=== PATIENT | female | born 1965 | race American Indian/Alaskan Native ===

== ENCOUNTER 2020-03-13 12:51 | Outpatient (CLI) | payer BC ==
--- NOTE | 2020-03-13 14:28 | Ultrasound Report ---
ULTRASOUND-GUIDED NEEDLE CORE BIOPSY BREAST WITH CLIP PLACEMENT CLINICAL: A palpable right breast mass at 12:00 12 cm from the nipple. FINDINGS: The procedure was explained to the patient and informed consent was obtained. Ultrasound demonstrated the previously identified 6 mm shadowing firm palpable relatively anechoic ma ss near the skin at 12:00 12 cm from the nipple. 2. Adjacent smaller masses are also identified.. I marked the breast with a felt tip marker and a timeout was called. The skin was prepped with Chloro -Prep and anesthetized with 1% lidocaine. Needle core biopsy was performed through small dermatotomy using ultrasound guidance, 2% lidocaine wi th epinephrine for deep anesthesia and a 14-gauge Achieve biopsy device. 2 cores were obtained and pl aced in formalin. The lesion showed near complete collapse after 2 passes and a marker clip was deplo yed within the lesion. The patient tolerated the procedure well and there were no apparent complications. Hemostasis was ach ieved with minimal effort and a sterile dressing was applied. A post procedure mammogram was not performed. She left the department in good condition and was given instructions for wound care and follow-up. IMPRESSION: Uncomplicated ultrasound guided needle core biopsy with clip placement right breast. My i mpression at the time of the biopsy is that this is a benign oil cyst which demonstrated near complet e collapse after 2 needle passes. Signer Name: Joel Mercado MD Signed: 03/13/2020 2:23 PM Workstation Name: [id number]
== END 2020-03-13 12:52 | disposition home or self-care (01) ==
LOC: SPVWC 12:51
PROVIDERS: ATTEND Surgery
DX: N63.12 Unspecified lump in the right breast, upper inner quadrant (principal); N64.89 Other specified disorders of breast
CPT/HCPCS: 88305; 88312

== ENCOUNTER 2020-08-20 13:26 | Outpatient (CLI) | payer BC | END 2020-08-20 13:27 | disposition home or self-care (01) | LOC: SPVWC 13:26 | PROVIDERS: ATTEND Surgery | DX: N63.15 Unspecified lump in the right breast, overlapping quadrants (principal) ==

== ENCOUNTER 2021-03-21 08:34 | Day surgery (SDC) | payer BC, OTHER ==
[2021-03-19 15:56] LABS: Hematocrit 38.4 % (30.3-42.9); Hemoglobin 12.6 gm/dl (10.1-14.3); Mean Corpuscular HGB Conc 33 % (30-34); Mean Corpuscular Volume 79 fl (79-97); Platelet Count 462 K/mm3 (140-440); Red Blood Count 4.85 M/mm3 (3.65-5.03); Red Cell Distribution Width 16.5 % (13.2-15.2)
[2021-03-19 16:06] LABS: Blood Urea Nitrogen 8 mg/dL (7-17); Calcium 8.8 mg/dL (8.4-10.2); Hemolysis Index 11
[2021-03-19 16:15] LABS: BUN/Creatinine Ratio 16
[~2021-03-21 08:34] MED LIST: BUPIVACAINE/PF (0.5%) 5 MG/1 ML 30 ML VIAL INFILTRATI ONE; LIDOCAINE (1%) 10 MG/1 ML VIAL 20 ML MDV INFILTRATI ONE; ROCURONIUM 50 MG/5 ML INJ IV ONE; SODIUM CHLORIDE 0.9% IRR 1,500 ML BOTTLE IR ONE; SUCCINYLCHOLINE CHLORIDE 200 MG/10 ML INJ MDV ONE; ceFAZolin/STERILE WATER 2 GM/20 ML SYRINGE IV NR; fentaNYL 100 MCG/2 ML INJ ONE; propofoL 200 MG/20 ML VIAL IV ONE
[2021-03-21] MEDS ORDERED: LACTATED RINGERS 1,000 ML ONE (09:02)
[2021-03-21] MEDS ORDERED: HYDROmorphone 1 MG/1 ML INJ IV PRN ×2 (09:36)
[2021-03-21] MEDS ORDERED: MAGNESIUM OXIDE 400 MG TAB PO ONE (09:36)
[2021-03-21] MEDS ORDERED: ACETAMINOPHEN 500 MG TAB PO ONE (09:36)
[2021-03-21] MEDS ORDERED: ONDANSETRON 4 MG/2 ML INJ IV PRN (09:36)
--- NOTE | 2021-03-21 09:37 | Anesthesia Day of Surgery ---
Anesthesia Day of Surgery - Day of Surgery Patient Examined: Yes Patient H&P Reviewed: Yes Patient is NPO: Yes
--- NOTE | 2021-03-21 09:39 | Anesthesia Consultation ---
Anesthesia Consult and Med Hx Date of service: 03/21/21 - Airway Anesthetic Teeth Evaluation: Chipped (Missing) ROM Head & Neck: Adequate Mental/Hyoid Distance: Adequate Mallampati Class: Class II Intubation Access Assessment: Good - Pre-Operative Health Status ASA Pre-Surgery Classification: ASA2 Proposed Anesthetic Plan: General - Pulmonary Hx Respiratory Symptoms: No (+2FS) Hx Pneumonia: (IN 2011) - Cardiovascular System Hx Hypertension: Yes - Central Nervous System Hx Back Pain: Yes (Hx scoliosis as a child) Hx Psychiatric Problems: Yes (Anxiety/Depression) - Gastrointestinal Hx Ulcer: Yes (in the past) Hx Gastroesophageal Reflux Disease: No - Endocrine Hx Non-Insulin Dependent Diabetes: Yes (Diet-controlled) - Hematic Hx Anemia: Yes (TREATED WITH IRON INFUSION) - Other Systems Hx Alcohol Use: No Hx Substance Use: No Hx Cancer: No Hx Obesity: Yes
[2021-03-21] MEDS ORDERED: LACTATED RINGERS 1,000 ML IV SCH (09:45)
[2021-03-21] MEDS ORDERED: MIDAZOLAM 2 MG/2 ML INJ IV NR (10:00)
[2021-03-21] MEDS ORDERED: CELECOXIB 200 MG CAP PO NR (10:00)
[2021-03-21] MEDS ORDERED: GABAPENTIN 300 MG CAP PO NR (10:00)
[2021-03-21] MEDS ORDERED: dexAMETHasone 20 MG/5 ML VIAL ONE (10:02)
[2021-03-21] MEDS ORDERED: fentaNYL 100 MCG/2 ML INJ ONE (10:02)
[2021-03-21] MEDS ORDERED: propofoL 200 MG/20 ML VIAL IV ONE (10:02)
[2021-03-21] MEDS ORDERED: ROCURONIUM 50 MG/5 ML INJ IV ONE ×2 (10:04→11:11)
[2021-03-21] MEDS ORDERED: BUPIVACAINE/PF (0.5%) 5 MG/1 ML 30 ML VIAL INFILTRATI ONE ×2 (10:07→11:10)
[2021-03-21] MEDS ORDERED: LIDOCAINE (1%) 10 MG/1 ML VIAL 20 ML MDV ONE (10:07)
[2021-03-21] MEDS ORDERED: SODIUM CHLORIDE 0.9% IRR 1,500 ML BOTTLE IR ONE (11:10)
[2021-03-21] MEDS ORDERED: LIDOCAINE (1%) 10 MG/1 ML VIAL 20 ML MDV INFILTRATI ONE (11:10)
[2021-03-21] MEDS ORDERED: PHENYLEPHRINE/NS 1,000 MCG/10 ML SYRINGE (OR USE) IV ONE (11:12)
[2021-03-21] MEDS ORDERED: SUCCINYLCHOLINE CHLORIDE 200 MG/10 ML INJ MDV ONE (11:24)
[2021-03-21] MEDS ORDERED: KETOROLAC 30 MG/1 ML INJ ONE (11:24)
[2021-03-21] MEDS ORDERED: ONDANSETRON 4 MG/2 ML INJ ONE (11:24)
[2021-03-21] MEDS ORDERED: ALBUTEROL 8.5 GM MDI INHALATION IH ONE (11:24)
[2021-03-21] MEDS ORDERED: ePHEDrine SULFATE 50 MG/1 ML INJ ONE (11:37)
[2021-03-21] MEDS ORDERED: NEOSTIGMINE 10MG/10 ML INJ MDV ONE (12:17)
[2021-03-21] MEDS ORDERED: GLYCOPYRROLATE 0.4 MG/2 ML INJ ONE (12:17)
[2021-03-21] MEDS ORDERED: SUGAMMADEX SODIUM 200 MG/2 ML VIAL IV ONE (12:28)
--- NOTE | 2021-03-21 12:30 | Short Stay Summary ---
Short Stay Documentation Date of service: 03/21/21 - History Principal diagnosis: symptomatic cholethiasis H&P: obtained from office - Allergies and Medications Current Medications: Allergies No Known Allergies Allergy (Unverified 03/17/21 16:05) Home Medications Medication Instructions Recorded Confirmed Last Taken Type Amlodipine Besylate/Valsartan 1 each PO DAILY 03/17/21 03/21/21 03/21/21 07:00 History [Amlodipine-Valsartan 10-320 mg] Escitalopram Oxalate [Lexapro] 20 mg PO DAILY 03/17/21 03/21/21 03/21/21 07:00 History Ibuprofen [Motrin] 800 mg PO Q8HR PRN 03/17/21 03/21/21 03/16/21 09:00 History atenoloL [Tenormin] 25 mg PO DAILY 03/17/21 03/21/21 03/21/21 07:00 History HYDROcodone/APAP 5-325 [[place] 1 each PO Q4HR PRN #20 tablet 03/21/21 Unknown Rx 5/325] Active Medications Cefazolin Sodium (Cefazolin/Sterile Water 2 Gm/20 Ml Syringe) 2 gm IV PREOP NR Stop: 03/21/21 20:00 Celecoxib (Celecoxib 200 Mg Cap) 400 mg PO PREOP NR Stop: 03/21/21 19:00 Last Admin: 03/21/21 09:52 Dose: 400 mg Documented by: Gabapentin (Gabapentin 300 Mg Cap) 300 mg PO PREOP NR Stop: 03/21/21 19:00 Last Admin: 03/21/21 09:53 Dose: 300 mg Documented by: Hydromorphone HCl (Hydromorphone 1 Mg/1 Ml Inj) 0.25 mg IV Q10MIN PRN PRN Reason: Pain, Moderate (4-6) Hydromorphone HCl (Hydromorphone 1 Mg/1 Ml Inj) 0.5 mg IV Q10MIN PRN PRN Reason: Pain , Severe (7-10) Lactated Ringer's (Lactated Ringers) 1,000 mls @ 125 mls/hr IV DIRECT HOMAR Last Admin: 03/21/21 09:30 Dose: 125 mls/hr Documented by: Midazolam HCl (Midazolam 2 Mg/2 Ml Inj) 2 mg IV PREOP NR Stop: 03/21/21 23:59 Ondansetron HCl (Ondansetron 4 Mg/2 Ml Inj) 4 mg IV ONCE PRN PRN Reason: Nausea And Vomiting - Brief post op/procedure progress note Date of procedure: 03/21/21 Pre-op diagnosis: symptomatic cholelithiasis Post-op diagnosis: other (chronic cholecystitis) Procedure: laparoscopic cholecystectomy Anesthesia: GETA, local Findings: Chronic gallbladder wall thickening, contracted gallbladder with large stone in body Dense adhesions from gallbladder to transverse colon and omentum Surgeon: NILSON BOONE Estimated blood loss: minimal Pathology: list (gallbladder) Specimen disposition: to lab Condition: stable - Hospital course Hospital course: Pt observed in PACU and discharged to home in stable condition when criteria met - Disposition Condition at discharge: Good Disposition: DC-01 TO HOME OR SELFCARE Short Stay Discharge Plan Activity: other (no heavy lifting for 1 week) Diet: low fat Wound: open to air Additional Instructions: SEE PRINTED DISCHARGE INSTRUCTIONS Follow up with: SEAMUS JEFFERSON MD [Primary Care Provider] - 7 Days NILSON BOONE DO [Staff Physician] - 14 Days Prescriptions: HYDROcodone/APAP 5-325 [[place] 5/325] 1 each PO Q4HR PRN #20 tablet PRN Reason: Pain , Severe (7-10)
[2021-03-21] MEDS ORDERED: oxyCODONE /ACETAMINOPHEN 5-325MG TAB PO ONE (13:50)
[2021-03-21] MEDS ORDERED: oxyCODONE /ACETAMINOPHEN 5-325MG TAB ONE (13:56)
[2021-03-21] MEDS ORDERED: oxyCODONE 5 MG TAB PO ONE (14:39)
--- NOTE | 2021-03-21 15:34 | Post Anesthesia Evaluation ---
- Post Anesthesia Evaluation Patient Participated: Yes Airway Patent: Yes Stable Respiratory Function: Yes Nausea/Vomiting: No Temp > 96.8F: Yes Pain Manageable: Yes Adequeate Hydration: Yes Anesthesia Complications: No Block Receding Appropriately: Not Applicable Patient on Ventilator: No
[2021-03-21 16:10] VITALS: BP 121/75
--- NOTE | 2021-03-21 17:24 | Operative Report ---
Operative Report Operative Report: Date of procedure: 03/21/21 Pre-op diagnosis: symptomatic cholelithiasis Post-op diagnosis: other (chronic cholecystitis) Procedure: laparoscopic cholecystectomy Anesthesia: GETA, local Findings: Chronic gallbladder wall thickening, contracted gallbladder with large stone in body Dense adhesions from gallbladder to transverse colon and omentum Surgeon: NILSON BOONE Bacon Stringer: MELISSA Landry Estimated blood loss: minimal Pathology: list (gallbladder) Specimen disposition: to lab Condition: stable Hospital course: Pt observed in PACU and discharged to home in stable condition when criteria met Condition at discharge: Good Disposition: DC-01 TO HOME OR SELFCARE HPI an indication: 55-year-old female who presented to the surgery clinic with complaints of intermittent sharp right upper quadrant abdominal pain. Patient states that the pain is been ongoing for 2 years but have become more frequent in the last few months. The pain was associated with fatty foods and often led to nausea and vomiting. An ultrasound was performed which showed a 1.7 cm stone in the gallbladder without evidence of cholecystitis or bile duct dilatation. It was recommended that the patient undergo cholecystectomy. All risks, benefits, alternatives to surgery were discussed in detail and questions answered. Consent was obtained for laparoscopic, possible open cholecystectomy, possible cholangiogram. Procedure in detail: The patient was identified in the preoperative area and taken back to the operating room, placed on the operating room table in supine position. After anesthesia was induced, the abdomen was prepped and draped in usual sterile fashion and timeout was performed. Local anesthetic was infiltrated into all of the skin incision sites. Using an 11 blade, a supraumbilical incision was made through which a Veress needle was inserted. The position of the veress needle was confirmed with the saline drop test and the abdomen was then insufflated to 15 mmHg without incident. The veress needle was then removed and a 5 mm Optiview trocar placed through this incision. The abdomen was then inspected and there was no underlying injury to any of the abdominal contents. An additional 12 mm subxyphoid port, and 2, 5mm RUQ ports were then placed under direct visualization. The patient was then placed into reverse Trendelberg and tilted to the left. The gallbladder was partially only visualized due to adhesions from the colon to the gallbladder obscuring it. The fundus 1. Based on the patient's history, physical exam, and imaging findings, her pain is consistent with symptomatic cholelithiasis 2. Recommend cholecystectomy. I discussed all risk, benefits, alternatives to surgery with the patient and questions were answered. She is agreeable to proceed and consent was obtained for laparoscopic cholecystectomy, possible open, possible cholangiogram. 3. Paperwork to be sent to [facility] to schedule surgery at next available date. 4. Preoperative Covid testing will be scheduled. Was identified and retracted cephalad. A very meticulous dissection was then performed in order to free the adhesions of the colon. Using a combination of blunt dissection, sharp dissection with EndoShears, electrocautery with the hook the colon was very carefully dissected from the gallbladder. The colon was identified and no identifiable bowel injury was seen. The gallbladder was then able to be fully visualized and retracted cephalad to the liver. The gallbladder wall appeared chronically thickened and a large stone within the mid body. The cystic duct and artery were then carefully dissected. Due to the chronic inflammation of the gallbladder wall it was decided to perform a dome down approach in order to obtain a critical view. The gallbladder was dissected from the liver starting at and the fundus. Hemostasis was achieved along the way. Once the gallbladder was completely dissected off the liver bed, it was clear that the cystic duct and artery were the only two structures entering the gallbladder. The critical view was successfully obtained. Three clips were then placed on the proximal aspect of the cystic duct and one clip distally, and 2 clips on the cystic artery proximally and one distal. The cystic duct and cystic artery were then transected in between the clips using EndoShears. The gallbladder was placed into a Endo Catch bag and removed from the abdomen via the 12mm port. Upon inspection the gallbladder was very contracted and contained a medium size stone the gallbladder fossa was then inspected and there was no identifiable bleeding or bile leakage. Hemostasis was ensured. The clips on the cystic duct and artery were visualized and intact. The patient was then placed into neutral po sition and Morison's pouch was irrigated and the irrigant returned clear. The 12 mm port fascia was closed with interrupted 0 Vicryl sutures using the Alcon Garcia device. Maryellen powder was sprayed onto the liver bed for additional hemostasis. The remaining ports were removed under direct visualization. Skin incisions were closed with 4-0 Monocryl subcuticular stitches and skin glue. All skin incisions were once again infiltrated with local anesthetic. At the end case all sponge, instrument, sharp counts were correct 2. The patient was awoken from anesthesia, extubated, and taken to PACU in stable condition.
== END 2021-03-21 08:35 | disposition home or self-care (01) ==
LOC: OR 08:34
PROVIDERS: ATTEND Surgery
DX: K80.10 Calculus of gallbladder with chronic cholecystitis without obstruction (principal); Z20.822 Contact with and (suspected) exposure to COVID-19; K66.0 Peritoneal adhesions (postprocedural) (postinfection); I10 Essential (primary) hypertension; E66.9 Obesity, unspecified; E11.9 Type 2 diabetes mellitus without complications; F32.9 Major depressive disorder, single episode, unspecified; F41.9 Anxiety disorder, unspecified; D64.9 Anemia, unspecified; Z79.899 Other long term (current) drug therapy; Z87.01 Personal history of pneumonia (recurrent); Z90.710 Acquired absence of both cervix and uterus; Z87.440 Personal history of urinary (tract) infections; Z98.890 Other specified postprocedural states
CPT/HCPCS: 36415; 47562; 80048; 82962; 85027; 88304; J0330; J0690; J1100; J1170; J1885; J2370; J2405; J2704; J2710; J3010; J7120; U0003